=== PATIENT | female | born 1985 | race Caucasian/White ===

== ENCOUNTER 2018-02-09 15:33 | Day surgery (SDC) | payer BC, OTHER ==
[2018-02-09 15:58] VITALS: BP 108/59; TEMP 98.4
[2018-02-09 15:59] VITALS: BMI 22.4
--- NOTE | 2018-02-09 16:17 | PDOC.LDHP ---
Labor and Delivery H&P Chief complaint: other HPI: Patient of Dr Augustin Location: Triage CC: spotting at 22 weeks 3 days Patient is a 32 yo without HX PTB, here for spotting after going to the restroom. No VB, no ROM, no contractions. No trauma or recent sex. Review of systems: complete ROS performed and as HPI Current gestational age (weeks): 22 (3 days) Due date: 06/12/18 Grav: 4 Para: 2 Current complications: none Abnormal US findings: No Current medications: pre- vitamins Previous surgical history: none Allergies/Adverse Reactions: Allergies Allergy/AdvReac Type Severity Reaction Status Date / Time vancomycin Allergy Anaphylaxis Verified 02/09/18 16:02 - Physical Exam Vital signs reviewed and normal: yes General: NAD Heart: RRR Lungs: CTAB Abdomen: gravid [place] contractions every: FHTS 150s, no contractions - Assessment 22 weeks vaginal spotting, no HX issues prior (no previa) - Plan Plan: observation in L&D (We will: watch in L&D. There is no evidence of PTL or VB grossly. No evidence of ROM. I have ordered cervical length sono. Patient stable.)
--- NOTE | 2018-02-09 17:53 | PDOC.EVN ---
Event Note - Event Note Event Note: Sono by biometrics technician: FHTs 140s Cephalic Posterior placenta CX 3.7cm OK for outpatient follow up. No evidence VB at this time Information given to patient and family.
--- NOTE | 2018-02-09 18:55 | ULT ---
LIMITED OBSTETRICAL ULTRASOUND PER TRANSVAGINAL CERVICAL LENGTH: 02/09/18 COMPARISON: None. FINDINGS: Cervical length measures 3.8 cm. There is a single live intrauterine gestation in vertex presentation . The placenta is posterior in location without evidence of previa. Cardiac activity is noted at 103 beats per minute. IMPRESSION: Cervical length of 3.8 cm. POS: [facility]
== END 2018-02-09 17:58 | disposition home or self-care (01) ==
LOC: L&D/OP 15:33
PROVIDERS: ATTEND Obstetrics & Gynecology
DX: O26.852 Spotting complicating pregnancy, second trimester (principal); Z88.1 Allergy status to other antibiotic agents; Z79.899 Other long term (current) drug therapy; Z3A.22 22 weeks gestation of pregnancy
CPT/HCPCS: 76815

== ENCOUNTER 2018-05-02 22:58 | Day surgery (SDC) | payer BC, OTHER ==
[2018-05-02 23:32] VITALS: BMI 23.6
--- NOTE | 2018-05-03 02:23 | PRG ---
DATE OF SERVICE: 05/02/2018 OB ER ENCOUNTER [employer] MANAGER: Farhat Augustin MD CHIEF COMPLAINT: Abdominal pains. HISTORY OF PRESENT ILLNESS: The patient is a 33-year-old, G4, P2 female with an intrauterine pregnan cy at 34 weeks and 2 days, who presents to labor and delivery today with concerns that she may be in early labor or may require steroids. The patient states that she has been feeling contractions about 2-3 times an hour, not painful, but somewhat uncomfortable. She denies any leaking fluid or vaginal bleeding. She reports she had a fall a couple days ago to her knees, but was not anything serious. Denies any headache, fever, illness, chest pain, shortness of breath, nausea, vomiting, diarrhea. S he does report constipation. Denies any new rash. Denies hip problems, knee problems, muscle weakne ss. Denies vaginal bleeding, leakage of fluid, urinary urgency or frequency. PAST MEDICAL HISTORY: Negative. PAST SURGICAL HISTORY: Negative. ALLERGIES: VANCOMYCIN. MEDICATIONS: vitamins. OBSTETRIC LABORATORY: Unavailable. SOCIAL HISTORY: Denies drug, alcohol, or tobacco use. She does use nicotine gum. She has used the nicotine gum for the last few years. REVIEW OF SYSTEMS: Per HPI. PHYSICAL EXAMINATION: VITAL SIGNS: Blood pressure is 108/58, heart rate of 90, respiratory rate of 18, temperature 98.4. GENERAL: She appears to be in no acute distress. She is alert and oriented, cooperative, and pleasa nt to interact with. HEENT: Normocephalic, atraumatic. LUNGS: Clear to auscultation bilaterally. HEART: Regular rate and rhythm. ABDOMEN: Soft and nontender. EXTREMITIES: Nontender, nonedematous. GENITOURINARY: Performed by the nursing staff. Cervix is closed, thick, and high. heart tracing performed for abdominal pain in NST included tracing continued for abou t 1 hour. Baseline is noted to be in the 120s with moderate long-term variability, positive accelera tions, no decelerations. She has one clear contraction visible on the monitor, but was not felt by t he patient. ASSESSMENT AND PLAN: The patient is a 33-year-old, G4, P2 female with an intrauterine at 3 4 weeks and 2 days, presenting with concerns of uterine contractions. She has no evidence of labor. Fetus has a reactive NST and category 1 tracing. The patient has been sent home with labor precautions and reassurance. She has an appointment tomorrow with Dr. Augustin, which she has been enc ouraged to keep.
== END 2018-05-03 00:30 | disposition home or self-care (01) ==
LOC: L&D/OP 22:58
PROVIDERS: ATTEND Obstetrics & Gynecology
DX: O47.03 False labor before 37 completed weeks of gestation, third trimester (principal); Z3A.34 34 weeks gestation of pregnancy; Z79.899 Other long term (current) drug therapy; Z88.1 Allergy status to other antibiotic agents
CPT/HCPCS: 99283

== ENCOUNTER 2018-06-12 19:59 | Emergency (ER) | payer BC, OTHER ==
[2018-06-12 21:28] LABS: #Eosinphils 0.1 thou/uL (0.0-0.7); #Lymphocytes 1.6 thou/uL (1.20-3.40); #Monocytes 0.5 thou/uL (0.11-0.59); #Neutrophils 7.4 thou/uL (1.40-6.50); %Basophils 0.2 % (0.0-1.0); %Eosinophils 0.6 % (0.0-10.0); %Lymphocytes 16.7 % (21.0-51.0); %Monocytes 5.3 % (0.0-10.0); %Neutrophils 77.2 % (42.0-75.0); Hemoglobin 10.5 g/dL (12.0-16.0); Mean Corpuscular HGB CONC 33.9 g/dL (32.0-36.0); Mean Corpuscular Hemoglobin 28.9 pg (27.0-31.0); Mean Corpuscular Volume 85.4 fL (78.0-98.0); Mean Platelet Volume 8.2 fL (7.4-10.4); Platelet Count 245 thou/uL (130-400); Red Blood Cell (RBC) Count 3.61 mill/uL (4.20-5.40); White Blood Cell (WBC) Count 9.5 thou/uL (4.8-10.8)
[2018-06-12 21:32] LABS: ALT (SGPT) 33 U/L (8-55); AST (SGOT) 44 U/L (5-34); Albumin 3.4 g/dL (3.5-5.0); Alkaline Phosphatase 189 U/L (40-150); Anion Gap 12 mmol/L (10-20); BUN (Urea Nitrogen) 9 mg/dL (7.0-18.7); Bilirubin, Total 0.4 mg/dL (0.2-1.2); CK (CPK) 57 U/L (29-168); Calc. Creatinine Clearance 0 mL/min (70-130); Calcium 8.9 mg/dL (7.8-10.44); Carbon Dioxide 23 mmol/L (22-29); Chloride 105 mmol/L (98-107); Estimated GFR-MDRD Greater than 90; Globulin 3.2 g/dL (2.4-3.5); Glucose 86 mg/dL (70-105); Potassium 3.8 mmol/L (3.5-5.1); Protein, Total 6.6 g/dL (6.0-8.3); Sodium 136 mmol/L (136-145)
[2018-06-12] MEDS ORDERED: diphenhydrAMINE 50 MG/ML VIAL ONE (22:00)
[2018-06-12] MEDS ORDERED: Metoclopramide HCl 10 MG/2 ML VIAL ONE (22:00)
[2018-06-12] MEDS ORDERED: Ketorolac Tromethamine 30 MG/ML VIAL ONE (22:00)
[2018-06-13] MEDS ORDERED: methylPREDNISolone Sod Succ/PF 125 MG/2 ML VIAL ONE (00:16)
[2018-06-13] MEDS ORDERED: Caffeine/Sodium Benzoate 0.5 GM in Sodium Chloride 0.9% 1,000 ML IVPB SCH (00:30)
== END 2018-06-13 02:52 | disposition home or self-care (01) ==
LOC: ERS 19:59
DX: R51 Headache (principal); F17.210 Nicotine dependence, cigarettes, uncomplicated
CPT/HCPCS: 80053; 82550; 83605; 85025; 96365; 96366; 96367; 96375; J0706; J1200; J1885; J2765; J2930; J7050

== ENCOUNTER 2019-06-14 18:17 | Emergency (ER) | payer BC, OTHER ==
[2019-06-14 19:46] LABS: Bilirubin Small (Negative); Blood, Urine Trace (Negative); Clarity Slightly Cloudy (Clear); Glucose, Urine (Dipstick) Negative (Negative); Leukocyte Negative (Negative); Nitrite Negative (Negative); Protein, Urine (Dipstick) Negative (Neg-Trace)
[2019-06-14 19:47] LABS: Pregnancy Test - Urine (BHCG) Negative (Negative); Pregu Control Background? CLEAR/WHITE (CLR/WHITE); Pregu Control Bar Appear? YES (CONTROL BAR)
[2019-06-14 19:53] LABS: Bacteria/HPF 1+ HPF (None Seen); Mucous/LPF 1+ LPF (<2+); Squamous Epithelial 0-3 HPF (0-3); WBC/HPF 0-3 HPF (0-3)
[2019-06-14] MEDS ORDERED: Acetaminophen/Codeine 30-300mg Tablet ONE (20:04)
[2019-06-14] MEDS ORDERED: metroNIDAZOLE 500 MG TAB ONE (20:05)
[2019-06-17 22:07] LABS: Chlamydia by PCR Not Detected (NotDetected); GC by PCR Not Detected (NotDetected)
== END 2019-06-14 20:22 | disposition home or self-care (01) ==
LOC: SCSER 18:17
DX: N72 Inflammatory disease of cervix uteri (principal)
CPT/HCPCS: 81003; 81015; 81025; 87491; 87591; 99284

== ENCOUNTER 2021-01-11 17:21 | Outpatient (CLI) | payer BC ==
[2021-01-12 02:13] LABS: SARS-CoV-2 PCR by NAA Not Detected (NotDetected)
== END 2021-01-11 17:22 | disposition home or self-care (01) ==
LOC: EDBD → LABBT 17:21
PROVIDERS: ATTEND Internal Medicine Gastroenterology
DX: Z01.812 Encounter for preprocedural laboratory examination (principal); R10.13 Epigastric pain; R11.0 Nausea; R13.10 Dysphagia, unspecified; Z20.822 Contact with and (suspected) exposure to COVID-19
CPT/HCPCS: 87635; U0003; U0005